=== PATIENT | female | born 1980 | race Caucasian/White ===

== ENCOUNTER 2017-05-14 08:10 | Inpatient (IN) | payer OTHER ==
[2017-05-14] MEDS ORDERED: ELECTROLYTE-148 SOLN 500 ML IV ONE (08:20)
[2017-05-14] MEDS ORDERED: CITRIC ACID/SODIUM CITRATE 30 ML UNIT-DOSE CUP PO ONE (08:59)
[2017-05-14] MEDS ORDERED: ELECTROLYTE-148 SOLN 1,000 ML IV SCH (09:00)
--- NOTE | 2017-05-14 09:13 | HP ---
Past Medical History - Primary Care Physician PCP:: Mario Gonzalez - Admission Chief Complaint: 39 weeks, ptrvious c/s, ama,transverse lie . for repeat c/s History of Present Illness: 36 yo f 39 weeks, with previous c/s and transverse lie, admitted for repeat c/s, rba discussed, cx clp, presenting part high, fhr cat1 History Source: Patient Limitations to Obtaining History: Language Barrier - Past Medical History ...: 3 ...Para: 1 ...Term: 1 ...Spon : 0 ...Induced : 1 ... Weeks Gestation by Dates: 39 ...EDC by Dates: 05/16/17 ...EDC by Sono: 05/16/17 Additional OB History: previous c/s - Past Surgical History Past Surgical History: Yes: Hx Myomectomy: No Hx Transabdominal Cerclage: No - Alcohol/Substance Use Hx Alcohol Use: No History of Substance Use: reports: None - Social History History of Recent Travel: No Home Medications - Allergies Allergies/Adverse Reactions: Allergies Allergy/AdvReac Type Severity Reaction Status Date / Time No Known Allergies Allergy Verified 05/14/17 08:37 - Home Medications Home Medications: Ambulatory Orders Ferrous Sulfate [Feosol] 325 mg PO DAILY 05/14/17 Vit No.129/Iron/FA [ One Daily Tablet] 1 each PO DAILY Review of Systems - Review of Systems Constitutional: reports: No Symptoms Eyes: reports: No Symptoms HENT: reports: No Symptoms Neck: reports: No Symptoms Cardiovascular: reports: No Symptoms Respiratory: reports: No Symptoms Gastrointestinal: reports: No Symptoms Genitourinary: reports: No Symptoms Breasts: reports: No Symptoms Reported Musculoskeletal: reports: No Symptoms Integumentary: reports: No Symptoms Endocrine: reports: No Symptoms Hematology/Lymphatic: reports: No Symptoms Psychiatric: reports: No Symptoms Physical Exam - Maternity Constitutional: Yes: Well Nourished, No Distress, Calm Eyes: Yes: WNL, Conjunctiva Clear, EOM Intact HENT: Yes: WNL, Atraumatic, Normocephalic Neck: Yes: WNL, Supple, Trachea Midline Cardiovascular: Yes: WNL, Regular Rate and Rhythm Breast(s): Yes: WNL - Abdominal Exam/OB Fundal Height: 40 Number of Fetuses: Single Presentation: Transverse Contractions: No Intensity: Unaware Monitor Mode: External Heart Rate Location: [facility] Category: I Accelerations: Uniform - Vaginal Exam/OB Vaginal Bleediing: No Speculum Exam: No Dilatation (cm): closed Effacement (%): 0 Amniotic Membrane Status: Intact Presentation: Transverse/Shoulder Station: -4 - Physical Exam Musculoskeletal: Yes: WNL, Muscle Weakness Edema: Yes Edema: LLE: Trace, RLE: Trace Deep Tendon Reflex Grade: Normal +2 Psychiatric: Yes: WNL Hemorrhage Risk Assessment - Risk Factors Risk Score: 1 Risk Level: Medium Risk Problem List - Problems (1) with 39 completed weeks gestation Code(s): Z3A.39 - 39 WEEKS GESTATION OF (2) Previous section complicating , antepartum condition or complication Code(s): O34.219 - MATERNAL CARE FOR UNSP TYPE SCAR FROM PREVIOUS DEL (3) Transverse lie, antepartum Code(s): O32.2XX0 - MATERNAL CARE FOR TRANSVERSE AND OBLIQUE LIE, UNSP Qualifiers: Fetus number: single or unspecified fetus Qualified Code(s): O32.2XX0 - Maternal care for transverse and oblique lie, not applicable or unspecified (4) Advanced maternal age (AMA) in Code(s): [id number] - Assessment/Plan admit for repeat c/s , rba explained
[2017-05-14 09:16] VITALS: BMI 31.4
[2017-05-14] MEDS ORDERED: PRENATAL VITAMINS W/ FOLIC ACID TABLET (FP) PO SCH (10:00)
[2017-05-14] MEDS ORDERED: FERROUS SO4 325 MG TABLET (FP) PO SCH (10:00)
[2017-05-14] MEDS ORDERED: BENZOCAINE 28 GM HEMORRHOIDAL OINTMENT PR PRN (11:36)
[2017-05-14] MEDS ORDERED: WITCH HAZEL 50% (TUCKS) 40 PAD/JAR PAD TP PRN (11:36)
[2017-05-14] MEDS ORDERED: METHYLERGONOVINE MALEATE 0.2 MG/1 ML AMP IM PRN (11:36)
[2017-05-14] MEDS ORDERED: IBUPROFEN 800 MG/8 ML IJ IVPB PRN (11:36)
[2017-05-14] MEDS ORDERED: oxyCODONE HCL 5 MG TABLET PO PRN ×2 (11:36)
[2017-05-14] MEDS ORDERED: diphenhydrAMINE HCL 25 MG CAPSULE (FP) PO PRN (11:36)
[2017-05-14] MEDS ORDERED: BENZOCAINE 20% 57 GM BOTTLE TP PRN (11:36)
[2017-05-14] MEDS ORDERED: DEXTROSE 5%-LACTATED RINGERS 1,000 ML IV SCH (11:45)
[2017-05-14] MEDS ORDERED: OXYTOCIN 20 UNITS in 0.9% NS 1,000 ML IV SCH (11:45)
[2017-05-14] MEDS ORDERED: morphine SULFATE/Preservative Free 0.5 MG/ML (1cc Syringe) SPIN ONE (12:50)
[2017-05-14] MEDS: CEFAZOLIN (PRE-DOCKED) 50 ML IVPB SCH (18:11)
[2017-05-15] MEDS: CEFAZOLIN (PRE-DOCKED) 50 ML IVPB SCH (02:02)
[2017-05-15] MEDS: SIMETHICONE 80 MG TAB.CHEW (FP) PO PRN ×3 (02:32→21:30)
[2017-05-15] MEDS: IBUPROFEN 600 MG TABLET (FP) PO PRN ×3 (02:34→21:31)
[2017-05-15] MEDS: ACETAMINOPHEN 325 MG TABLET (FP) PO PRN ×3 (02:34→21:31)
[2017-05-15 08:28] LABS: BASOPHIL 0.4 % (0-2.0); EOSINOPHIL 1.7 % (0-4.5); MCHC 33.9 g/dl (32.0-36.0); MEAN CELL VOLUME 91.6 fl (80-96); MEAN PLT VOLUME 8.8 fl (7.5-11.1); NEUTROPHILS 76.1 % (42.8-82.8); PLATELET COUNT 158 K/MM3 (134-434); WHITE BLOOD COUNT 9.3 K/mm3 (4.0-10.0)
[2017-05-15] MEDS: ENOXAPARIN NA (PORCINE) 40 MG/0.4 ML DISP.SYRIN SQ SCH (09:37)
[2017-05-15] MEDS: PRENATAL VITAMINS W/ FOLIC ACID TABLET (FP) PO SCH (09:37)
[2017-05-15] MEDS ORDERED: DIPHTH,PERTUSS(ACELL),TET 0.5 ML DISP.SYRIN IM ONE ×2 (10:00→12:00)
--- NOTE | 2017-05-15 10:22 | PN ---
Progress Note (short form) - Note Progress Note: ANESTHESIOLOGY POST-OP CHECK 36F s/p repeat under spinal anesthesia, POD #1. No acute complaints. Denies backache, headache, N/V, numbness weakness. Not yet OOB, solo out this AM. Tolerating PO. pain 4-5/10 and tolerable. Vital Signs Temperature 97.9 F 05/15/17 10:00 Pulse Rate 56 L 05/15/17 10:00 Respiratory Rate 18 05/15/17 10:00 Blood Pressure 93/55 05/15/17 10:00 O2 Sat by Pulse Oximetry (%) 98 05/14/17 13:50 Active Medications Acetaminophen (Tylenol -) 650 mg PO Q4H PRN PRN Reason: FEVER OR PAIN Last Admin: 05/15/17 02:34 Dose: 650 mg Benzocaine (Americaine Ointment -) 1 applic SD PRN PRN PRN Reason: PAIN Benzocaine (Americaine 20% [place] -) 1 spray TP PRN PRN PRN Reason: PAIN Bisacodyl (Dulcolax Suppository -) 10 mg RC PRN PRN PRN Reason: CONSTIPATION Diphenhydramine HCl (Benadryl -) 25 mg PO Q8H PRN PRN Reason: FOR ITCHING Last Admin: 05/15/17 03:56 Dose: 25 mg Diphenhydramine HCl (Benadryl Injection -) 25 mg IVPUSH Q4H PRN PRN Reason: Pruritis Enoxaparin Sodium (Lovenox -) 40 mg SQ DAILY [facility] Last Admin: 05/15/17 09:37 Dose: 40 mg Parenteral Electrolytes (Plasma-Lyte 148 -) 1,000 mls @ 125 mls/hr IV ASDIR [facility] Last Admin: 05/14/17 10:00 Dose: 125 mls/hr Dextrose/Lactated Ringer's (D5-Lr -) 1,000 mls @ 125 mls/hr IV ASDIR [facility] Last Admin: 05/15/17 02:02 Dose: 125 mls/hr Ibuprofen (Motrin -) 600 mg PO Q4H PRN PRN Reason: PAIN Last Admin: 05/15/17 02:34 Dose: 600 mg Methylergonovine Maleate (Methergine Injection -) 0.2 mg IM Q4H PRN PRN Reason: EXCESSIVE BLEEDING Oxycodone HCl (Roxicodone -) 5 mg PO Q4H PRN PRN Reason: PAIN LEVEL 1-5 Oxycodone HCl (Roxicodone -) 10 mg PO Q4H PRN PRN Reason: PAIN LEVEL 6-10 Multivit/Folic Acid/Iron ( Vitamins (Sjr) -) 1 tab PO DAILY [facility] Last Admin: 05/15/17 09:37 Dose: Not Given Senna/Docusate Sodium (Pericolace -) 2 tablet PO HS PRN PRN Reason: CONSTIPATION Simethicone (Mylicon -) 80 mg PO Q4H PRN PRN Reason: GAS Last Admin: 05/15/17 02:32 Dose: 80 mg Witch Jeannette/Glycerin (Tucks Pads -) 1 pad TP PRN PRN PRN Reason: PAIN Gen; Awake, alert Ext: No motor or sensory deficits of B/L lower extremities. No apparent anesthesia complications. Pain well controlled. Continue management as per primary team
--- NOTE | 2017-05-15 11:30 | PN ---
Post Progress Note - Subjective Subjective: no complains , voided after solo is taken out Post Day: 1 Type of Delivery: Repeat C/S Vital Signs: Vital Signs Temperature 97.9 F 05/15/17 10:00 Pulse Rate 56 L 05/15/17 10:00 Respiratory Rate 18 05/15/17 10:00 Blood Pressure 93/55 05/15/17 10:00 O2 Sat by Pulse Oximetry (%) 98 05/14/17 13:50 Breast Exam: Yes: Soft, Other (Bf ). No: Engorged Uterus: Yes: Fundus Firm, Fundus below umbilicus, Non-tender Incision: Yes: Dressing dry and intact. No: Oozing Abdomen/GI: Yes: Abdomen soft (BS active ), Tolerating PO (clear liquids ). No : Abdominal Distention, Tender, Passing flatus Lochia: Yes: Rubra Lochia, amount: Moderate Extremities: Yes: Calves non-tender Perineum: Yes: Intact Activity: Ambulating - Labs Labs: CBC WBC 9.3 K/mm3 (4.0-10.0) D 05/15/17 07:10 RBC 3.61 M/mm3 (3.60-5.2) 05/15/17 07:10 Hgb 11.2 GM/dL (10.7-15.3) 05/15/17 07:10 Hct 33.0 % (32.4-45.2) 05/15/17 07:10 MCV 91.6 fl (80-96) 05/15/17 07:10 MCHC 33.9 g/dl (32.0-36.0) 05/15/17 07:10 RDW 14.0 % (11.6-15.6) 05/15/17 07:10 Plt Count 158 K/MM3 (134-434) D 05/15/17 07:10 MPV 8.8 fl (7.5-11.1) 05/15/17 07:10 Neutrophils % 76.1 % (42.8-82.8) 05/15/17 07:10 Lymphocytes % 15.7 % (8-40) D 05/15/17 07:10 Monocytes % 6.1 % (3.8-10.2) 05/15/17 07:10 Eosinophils % 1.7 % (0-4.5) 05/15/17 07:10 Basophils % 0.4 % (0-2.0) 05/15/17 07:10 Assessment/Plan stable. plan ct po care
[2017-05-15] MEDS ORDERED: BISACODYL 10 MG SUPP.RECT RC PRN (11:36)
--- NOTE | 2017-05-15 11:48 | OP ---
DATE OF OPERATION: 05/14/2017 PREOPERATIVE DIAGNOSES: , 39 weeks; previous section; transverse lie; advanced maternal age; requests a repeat section. POSTOPERATIVE DIAGNOSES: , 39 weeks; previous section; transverse lie; advanced maternal age; requests a repeat section. PROCEDURE: Repeat low-segment transverse section. SURGEON: Mario Gonzalez MD MARKETING FORECASTER: ANESTHESIA: Spinal. ANESTHESIOLOGIST: Aimee Mcdonough MD ESTIMATED BLOOD LOSS: 500 mL DESCRIPTION OF OPERATION: Patient was taken to the operating room and had adequate spinal anesthesia. Abdomen and perineum were prepped and draped. Pfannenstiel abdominal skin incision was made. Abdominal wall was cut [id number] until the peritoneum was exposed and incised. Upon entering the abdominal cavity, lower uterine segment was identified, and uterovesical fold of peritoneum established. Bladder was pushed down. A low transverse uterine incision was made. Incision extended laterally with the bandage scissors. Amniotic sac was entered. Clear fluid. Baby was in the transverse position, head to the right of the mother. Then, it was delivered at the vertex without any difficulty. Placenta was delivered manually. Uterine cavity was cleaned of all remaining tissue. Uterine incision was closed in 2 layers, first layer with 0 Biosyn continuous suture, the second layer with 0 Biosyn, imbricating the first layer. Bladder flap was closed with 0 Biosyn continuous suture. Both tube and ovaries were checked, were normal. No active bleeding was seen. All the laparotomy, sponge, and instrument counts were correct. Then, peritoneum was closed with 0 Biosyn continuous suture. Muscles were brought together with interrupted suture of 0 Biosyn. Fascia was closed with 0 Biosyn continuous suture, subcutaneous fat with interrupted suture of 0 Biosyn, and the skin was closed with lu. Patient tolerated the procedure well, left the OR in good condition. Angela [id number]
[2017-05-16] MEDS: ACETAMINOPHEN 325 MG TABLET (FP) PO PRN ×3 (03:41→17:50)
[2017-05-16] MEDS: IBUPROFEN 600 MG TABLET (FP) PO PRN ×3 (03:41→17:49)
[2017-05-16] MEDS: SIMETHICONE 80 MG TAB.CHEW (FP) PO PRN (03:41)
[2017-05-16] MEDS: ENOXAPARIN NA (PORCINE) 40 MG/0.4 ML DISP.SYRIN SQ SCH (09:59)
[2017-05-16] MEDS: PRENATAL VITAMINS W/ FOLIC ACID TABLET (FP) PO SCH (10:01)
--- NOTE | 2017-05-16 15:08 | PN ---
Post Progress Note - Subjective Subjective: 36 yo status post repeat , seen and evaluated. Doing well. Post Day: 2 Type of Delivery: Repeat C/S Vital Signs: Vital Signs Temperature 97.7 F 05/16/17 10:00 Pulse Rate 70 05/16/17 10:00 Respiratory Rate 20 05/16/17 10:00 Blood Pressure 103/73 05/16/17 10:00 O2 Sat by Pulse Oximetry (%) 98 05/14/17 13:50 Uterus: Yes: Fundus Firm Incision: Yes: Dressing dry and intact Abdomen/GI: Yes: Abdomen soft, Tolerating PO Lochia: Yes: Rubra Lochia, amount: Small Extremities: Yes: Calves non-tender Perineum: Yes: Intact Activity: Ambulating - Labs Labs: CBC WBC 9.3 K/mm3 (4.0-10.0) D 05/15/17 07:10 RBC 3.61 M/mm3 (3.60-5.2) 05/15/17 07:10 Hgb 11.2 GM/dL (10.7-15.3) 05/15/17 07:10 Hct 33.0 % (32.4-45.2) 05/15/17 07:10 MCV 91.6 fl (80-96) 05/15/17 07:10 MCHC 33.9 g/dl (32.0-36.0) 05/15/17 07:10 RDW 14.0 % (11.6-15.6) 05/15/17 07:10 Plt Count 158 K/MM3 (134-434) D 05/15/17 07:10 MPV 8.8 fl (7.5-11.1) 05/15/17 07:10 Neutrophils % 76.1 % (42.8-82.8) 05/15/17 07:10 Lymphocytes % 15.7 % (8-40) D 05/15/17 07:10 Monocytes % 6.1 % (3.8-10.2) 05/15/17 07:10 Eosinophils % 1.7 % (0-4.5) 05/15/17 07:10 Basophils % 0.4 % (0-2.0) 05/15/17 07:10 Problem List - Problems (1) Status post repeat low transverse section Code(s): Z98.891 - HISTORY OF UTERINE SCAR FROM PREVIOUS SURGERY Assessment/Plan Status post repeat Stable Continue routine Post op care
[2017-05-16] MEDS ORDERED: SENNOSIDES/DOCUSATE COMBO (SENNA PLUS) TABLET (UD) PO PRN (22:00)
[2017-05-17] MEDS: SIMETHICONE 80 MG TAB.CHEW (FP) PO PRN (02:12)
[2017-05-17] MEDS: ACETAMINOPHEN 325 MG TABLET (FP) PO PRN ×3 (02:12→18:37)
[2017-05-17] MEDS: IBUPROFEN 600 MG TABLET (FP) PO PRN ×3 (02:13→18:36)
--- NOTE | 2017-05-17 05:10 | PN ---
Progress Note (short form) - Note Progress Note: pod 3 doing well, no c/o CBC, BMP 05/15/17 07:10 Last Vital Signs Temp Pulse Resp BP Pulse Ox 97.9 F 64 20 114/71 98 05/16/17 21:09 05/16/17 21:09 05/16/17 21:09 05/16/17 21:09 05/14/17 13:50 abdomen soft, no distension, no cva incision dry, clean no calf tenderness plan ambulate . cbc Problem List - Problems (1) with 39 completed weeks gestation Code(s): Z3A.39 - 39 WEEKS GESTATION OF (2) Previous section complicating , antepartum condition or complication Code(s): O34.219 - MATERNAL CARE FOR UNSP TYPE SCAR FROM PREVIOUS DEL (3) Transverse lie, antepartum Code(s): O32.2XX0 - MATERNAL CARE FOR TRANSVERSE AND OBLIQUE LIE, UNSP Qualifiers: Fetus number: single or unspecified fetus Qualified Code(s): O32.2XX0 - Maternal care for transverse and oblique lie, not applicable or unspecified (4) Advanced maternal age (AMA) in Code(s): [id number] -
[2017-05-17 07:00] LABS: BASOPHIL 0.7 % (0-2.0); EOSINOPHIL 3.2 % (0-4.5); MCH 30.7 pg (25.7-33.7); MCHC 33.6 g/dl (32.0-36.0); MEAN CELL VOLUME 91.5 fl (80-96); MEAN PLT VOLUME 8.6 fl (7.5-11.1); NEUTROPHILS 69.8 % (42.8-82.8); PLATELET COUNT 186 K/MM3 (134-434); WHITE BLOOD COUNT 7.7 K/mm3 (4.0-10.0)
[2017-05-17] MEDS: PRENATAL VITAMINS W/ FOLIC ACID TABLET (FP) PO SCH (10:27)
[2017-05-17] MEDS: ENOXAPARIN NA (PORCINE) 40 MG/0.4 ML DISP.SYRIN SQ SCH (12:12)
--- NOTE | 2017-05-17 15:36 | PATH ---
Surgical Pathology Report Patient Name: MALLORY FIGUEREDO [facility]. Rec. #: [id number] /Age/Gender: 1980 (Age: 36) / F Account: [id number] Location: [facility] OBS/FORGING PRESS OPERATOR Taken: 05/14/2017 Received: 05/15/2017 Reported: 05/17/2017 Physicians: Mario Gonzalez M.D. Specimen(s) Received PLACENTA Clinical History , TOPx1 term Repeat c/section Final Diagnosis PLACENTA, DELIVERY: FOCALLY DISRUPTED THIRD TRIMESTER PLACENTA WITH MODERATE PREVILLOUS, PERIVILLOUS, AND PRECHORIONIC FIBRIN DEPOSITION, THREE VESSEL UMBILICAL CORD, AND UNREMARKABLE PLACENTAL MEMBRANES. Electronically Signed William Soto M.D. Gross Description The specimen is received fresh, labeled "placenta" and is a 404 gram, 16.0 x 15.0 x 2.3 cm placenta with attached membranes and umbilical cord. The attached membranes are ross, translucent with focal opacities and insert marginally. The umbilical cord measures 34 cm in length and averages 1.3 cm in diameter. The cord inserts eccentrically, 2.5 cm to the nearest margin. No true knots or strictures are identified. Cut surface of the umbilical cord reveals 3 vessels. The surface is darden-blue with fibrin deposition and appropriate caliber vessels. The maternal surface is red-brown with focal defects. Sectioning reveals red-brown, spongy parenchyma. No focal lesions are identified. Buyer Renter sections are submitted in three cassettes as follows: 1- membrane rolls and umbilical cord; 2-3- full thickness sections of placenta. 05/16/2017 [facility]05/16/2017
--- NOTE | 2017-05-18 07:15 | DS ---
Physical Exam-ACCESSIONER Vital Signs: Vital Signs Temperature 98.0 F 05/17/17 22:00 Pulse Rate 64 05/17/17 22:00 Respiratory Rate 20 05/17/17 22:00 Blood Pressure 99/57 05/17/17 22:00 O2 Sat by Pulse Oximetry (%) 98 05/14/17 13:50 Constitutional: Yes: Well Nourished Eyes: Yes: Conjunctiva Clear HENT: Yes: Atraumatic Neck: Yes: Supple, Trachea Midline Cardiovascular: Yes: Regular Rate and Rhythm Respiratory: Yes: Regular, CTA Bilaterally Gastrointestinal: Yes: Normal Bowel Sounds Uterus: Yes: Normal Wound/Incision: Yes: Well Approximated, [place] Intact Neurological: Yes: Alert, Oriented ...Motor Strength: WNL Psychiatric: Yes: Alert, Oriented Labs: CBC, BMP 05/17/17 06:20 Delivery - Delivery Section: Repeat Type of Anesthesia: Spinal Episiotomy/Laceration: None EBL (cc): 500 Delivery, Single - Stages of Labor Date of Delivery: 05/14/17 Time of Delivery: 11:07 Time Placenta Delivered: 11:08 - Condition of Marine Firer/Buckle Assembler Present: Yes Name: Niels Brooks Gender: Female Weight: 7 lb 1 oz Total Hours ROM (Hrs/Mins): 0/2 - 1 Minute Total Score: 9 5 Minutes Total Score: 9 - Feeding Plan Initial Plan: Exclusive throughout hospitalization Discharge Summary Reason For Visit: C/SECTION Current Active Problems Advanced maternal age (AMA) in (Acute) with 39 completed weeks gestation (Acute) Previous section complicating , antepartum condition or complication (Acute) Status post repeat low transverse section (Acute) Transverse lie, antepartum (Acute) Procedures: Principal: Repeat Low Transverse Hospital Course: Routine Post op care Condition: Good - Instructions Diet, Activity, Other Instructions: regular diet, follow up office 1 week Referrals: Mario Gonzalez MD [Staff Physician] - Disposition: HOME - Home Medications Comprehensive Discharge Medication List: Ambulatory Orders Ferrous Sulfate [Feosol] 325 mg PO DAILY 05/14/17 Vit No.129/Iron/FA [ One Daily Tablet] 1 each PO DAILY Ibuprofen [Motrin -] 600 mg PO QID #28 tablet 05/16/17
[2017-05-18] MEDS: IBUPROFEN 600 MG TABLET (FP) PO PRN ×2 (09:47→14:20)
[2017-05-18] MEDS: ACETAMINOPHEN 325 MG TABLET (FP) PO PRN ×2 (09:48→14:20)
[2017-05-18] MEDS: ENOXAPARIN NA (PORCINE) 40 MG/0.4 ML DISP.SYRIN SQ SCH (09:49)
[2017-05-18] MEDS: PRENATAL VITAMINS W/ FOLIC ACID TABLET (FP) PO SCH (09:49)
[2017-05-18 12:08] VITALS: BP 104/59; PULSE 52; TEMP 98.1
== END 2017-05-18 17:24 | disposition home or self-care (01) | DRG 540 ==
LOC: JLDR 08:10 → J3W 16:58
PROVIDERS: ADMIT Obstetrics & Gynecology; ATTEND Obstetrics & Gynecology
PROC: 10D00Z1 Extraction of Products of Conception, Low, Open Approach (ICD-10-PCS; principal; 2017-05-14)
DX: O34.211 Maternal care for low transverse scar from previous cesarean delivery (principal); O32.2XX0 Maternal care for transverse and oblique lie, not applicable or unspecified; Z3A.39 39 weeks gestation of pregnancy; Z37.0 Single live birth
CPT/HCPCS: 36415; 85025; 88307-TC; 90715

== ENCOUNTER 2017-07-13 22:29 | Emergency (ER) | payer OTHER ==
[2017-07-13 22:43] VITALS: BP 106/67; PULSE 70; TEMP 97.7; BMI 26.1
[2017-07-13] MEDS ORDERED: LIDOCAINE HCL/PF 1% SDV 5ML VIAL ONE (23:04)
[2017-07-13] MEDS ORDERED: SULFAMETHOXAZOLE/TRIMETHOPRIM 800MG/160MG D.S. TABLET PO ONE (23:28)
[2017-07-13] MEDS ORDERED: CEPHALEXIN MONOHYDRATE 500 MG CAPSULE (UD) PO ONE (23:28)
--- NOTE | 2017-07-13 23:32 | PDOC ---
History of Present Illness - General History Source: Patient Exam Limitations: No Limitations - History of Present Illness Initial Comments: 07/13/17 23:58 The patient is a 36 year old female, with no significant past medical history, who presents today complaining of right first finger swelling x3 days with white /brown pus. She states that the finger has become progressively more painful and tender and she noticed the pus twice over the last 3 days. There is no red streaking up the arm, but she notes some pain in the right forearm. Denies fever, chills, nausea, vomiting. Allergies: none reported <Nicole Harrison - Last Filed: 07/13/17 23:58> <Ambar Ontiveros - Last Filed: 07/15/17 00:39> - General Chief Complaint: Pain Stated Complaint: FINGER INJURY Time Seen by Provider: 07/13/17 22:57 Past History <Nicole Harrison - Last Filed: 07/13/17 23:58> - Past Medical History Asthma: No Cancer: No Cardiac Disorders: No Diabetes: No HTN: No Seizures: No Thyroid Disease: No Other medical history: Pt denies - Psycho/Social/Smoking Cessation Hx Suicidal Ideation: No Smoking History: Never smoked Information on smoking cessation initiated: No Hx Alcohol Use: No Drug/Substance Use Hx: No Substance Use Type: None Hx Substance Use Treatment: No <Ambar Ontiveros - Last Filed: 07/15/17 00:39> - Past Medical History Allergies/Adverse Reactions: Allergies Allergy/AdvReac Type Severity Reaction Status Date / Time No Known Allergies Allergy Verified 07/13/17 22:40 Home Medications: Ambulatory Orders Ferrous Sulfate [Feosol] 325 mg PO DAILY 05/14/17 Vit No.129/Iron/FA [ One Daily Tablet] 1 each PO DAILY Ibuprofen [Motrin -] 600 mg PO QID #28 tablet 05/16/17 Cephalexin [Keflex] 500 mg PO Q6H #28 capsule 07/13/17 Sulfamethoxazole/Trimethoprim [Bactrim Ds -] 1 tab PO BID #14 tablet 07/13/17 Review of Systems - Review of Systems Able to Perform ROS?: Yes Comments:: 07/13/17 23:59 GENERAL/CONSTITUTIONAL: No fever or chills. No weakness. HEAD, EYES, EARS, NOSE AND THROAT: No change in vision. No ear pain or discharge. No sore throat. CARDIOVASCULAR: No chest pain or shortness of breath. SKIN: +tenderness and swelling to the right first finger. NEUROLOGIC: No headache, vertigo, loss of consciousness, or change in strength/ sensation. <Nicole Harrison - Last Filed: 07/13/17 23:58> *Physical Exam - Vital Signs Last Vital Signs Temp Pulse Resp BP Pulse Ox 97.7 F 70 20 106/67 98 07/13/17 22:40 07/13/17 22:40 07/13/17 22:40 07/13/17 22:40 07/13/17 22:40 <ChristyNicole - Last Filed: 07/13/17 23:58> - Vital Signs Last Vital Signs Temp Pulse Resp BP Pulse Ox 97.7 F 70 20 106/67 98 07/13/17 22:40 07/13/17 22:40 07/13/17 22:40 07/13/17 22:40 07/13/17 22:40 - Physical Exam Comments: GENERAL: Awake, alert, and fully oriented, in no acute distress EXTREMITIES: Normal range of motion, no edema. No clubbing or cyanosis. No cords, erythema, or tenderness NEUROLOGICAL: Cranial nerves II through XII grossly intact. Normal speech, normal gait SKIN: Warm, Dry, normal turgor, no rashes. +Tenderness, redness to R thumb to the lateral part of the nail. <Ambar Ontiveros - Last Filed: 07/15/17 00:39> Procedures - Incision and Drainage I&D Site: Right: Other (thumb) Anesthesia: 1% Lidocaine Volume(ml): 2 Blade Size: 11 Attempts: 2 Plain Packing: No Complications: none Dressing: Yes <Ambar Ontiveros - Last Filed: 07/15/17 00:39> ED Treatment Course - Medications Given in the ED: ED Medications Discontinued Medications Generic Name Dose Route Start Last Admin Trade Name Freq PRN Reason Stop Dose Admin Cephalexin HCl 500 mg 07/13/17 23:28 07/13/17 23:45 Keflex - PO 07/13/17 23:29 500 mg ONCE ONE Administration Trimethoprim/Sulfamethoxazole 1 each 07/13/17 23:28 07/13/17 23:44 Bactrim Ds - PO 07/13/17 23:29 1 each ONCE ONE Administration <Nicole Harrison - Last Filed: 07/13/17 23:58> Medical Decision Making - Medical Decision Making Attempted to I&D, however, no passage of any purulent material (there was small scab there, and patient had apparently expressed some material earlier). Recommended salt water soaks twice a day and abx for cellulitis. Stable for DC home. <Ambar Ontiveros - Last Filed: 07/15/17 00:39> *DC/Admit/Observation/Transfer <Nicole Harrison - Last Filed: 07/13/17 23:58> - Discharge Dispostion Admit: No <Ambar Ontiveros - Last Filed: 07/15/17 00:39> Diagnosis at time of Disposition: Paronychia of finger Qualifiers: Laterality: right Qualified Code(s): L03.011 - Cellulitis of right finger - Discharge Dispostion Disposition: HOME Condition at time of disposition: Stable - Prescriptions Prescriptions: Sulfamethoxazole/Trimethoprim [Bactrim Ds -] 1 tab PO BID #14 tablet Cephalexin [Keflex] 500 mg PO Q6H #28 capsule - Patient Instructions Printed Discharge Instructions: DI for Paronychia
[2017-07-13] MEDS ORDERED: SULFAMETHOXAZOLE/TRIMETHOPRIM 800MG/160MG D.S. TABLET ONE (23:42)
[2017-07-13] MEDS ORDERED: CEPHALEXIN MONOHYDRATE 250 MG CAPSULE (FP) ONE (23:43)
== END 2017-07-13 23:47 | disposition home or self-care (01) ==
LOC: JER 22:29
PROC: 0H9FXZZ Drainage of Right Hand Skin, External Approach (ICD-10-PCS; principal; 2017-07-13)
DX: L03.011 Cellulitis of right finger (principal)
CPT/HCPCS: 10140; 99281-25

== ENCOUNTER 2019-01-23 09:32 | Emergency (ER) | payer OTHER ==
[2019-01-23 10:23] VITALS: BMI 31.3
--- NOTE | 2019-01-23 11:07 | PDOC ---
History of Present Illness - General Chief Complaint: Vaginal Bleeding Stated Complaint: VAGINAL BLEEDING Time Seen by Provider: 01/23/19 10:48 - History of Present Illness Initial Comments: 01/23/19 11:05 38yo F currently 6 weeks by dates presents to the ED with vaginal bleeding since 5pm yesterday. Initially spotting, this morning suprapubic cramping and passing clots. Has not soaked through multiple pads, has only used 1 pad. Saw OB last week, had blood work done, was found to be positive for chlamydia and treated. No US at that time. Pt was also diagnosed with another infection for which she was prescribed clinda gel but she has not picked up yet. No recent vaginal discharge. No other sxs. No previous spontaneous abortions or complications with her pregnancies. Pt denies dizziness, cp, sob, caputo, fevers, chills, n/v/d, urinary sxs, rashes, weakness or numbness. Past History - Past Medical History Allergies/Adverse Reactions: Allergies Allergy/AdvReac Type Severity Reaction Status Date / Time No Known Allergies Allergy Verified 01/23/19 10:22 Home Medications: Ambulatory Orders Ferrous Sulfate [Feosol] 325 mg PO DAILY 05/14/17 Vit No.129/Iron/Folic [ One Daily Tablet] 1 each PO DAILY 05/14 Asthma: No Cancer: No Cardiac Disorders: No COPD: No Diabetes: No HTN: No Seizures: No Thyroid Disease: No - Reproductive History Is Patient Now?: Yes (6WKS) (#): 3 Para: 2 Therapeutic (s) & number: No Spontaneous : 0 - Suicide/Smoking/Psychosocial Hx Smoking History: Never smoked Have you smoked in the past 12 months: No Information on smoking cessation initiated: No Hx Alcohol Use: No Drug/Substance Use Hx: No Substance Use Type: None Hx Substance Use Treatment: No Review of Systems - Review of Systems Comments:: 01/23/19 12:32 GENERAL/CONSTITUTIONAL: No fever or chills. No weakness. HEAD, EYES, EARS, NOSE AND THROAT: No change in vision. No ear pain or discharge. No sore throat. GASTROINTESTINAL: No nausea, vomiting, diarrhea or constipation. GENITOURINARY: +vaginal bleeding and suprapubic cramping. No dysuria, frequency , or change in urination. CARDIOVASCULAR: No chest pain or shortness of breath. RESPIRATORY: No cough, wheezing, or hemoptysis. MUSCULOSKELETAL: No joint or muscle swelling or pain. No neck or back pain. SKIN: No rash NEUROLOGIC: No headache, vertigo, loss of consciousness, or change in strength/ sensation. ENDOCRINE: No increased thirst. No abnormal weight change. HEMATOLOGIC/LYMPHATIC: No anemia, easy bleeding, or history of blood clots. ALLERGIC/IMMUNOLOGIC: No hives or skin allergy. *Physical Exam - Vital Signs Last Vital Signs Temp Pulse Resp BP Pulse Ox 97.7 F 69 16 112/53 L 100 01/23/19 09:45 01/23/19 09:45 01/23/19 09:45 01/23/19 09:45 01/23/19 09:45 - Physical Exam Comments: 01/23/19 12:34 GENERAL: Awake, alert, and fully oriented, in no acute distress EYES: PERRLA, EOMI, sclera anicteric, conjunctiva clear ENT: Oropharynx clear without exudates. Moist mucosa NECK: Normal ROM, supple, no lymphadenopathy, JVD, or masses LUNGS: Breath sounds equal, clear to auscultation bilaterally. No wheezes, and no crackles HEART: Regular rate and rhythm, normal S1 and S2, no murmurs, rubs or gallops ABDOMEN: Soft, nontender, normoactive bowel sounds. No guarding, no rebound. No masses : +blood in vault with clots, +pooling bright blood with speculum, os is closed, no ttp in midline or adnexa b/l. No CMT EXTREMITIES: Normal range of motion, no edema. No cords, erythema, or tenderness NEUROLOGICAL: Normal speech, cranial nerves intact, equal strength and sensation b/l SKIN: Warm, Dry, normal turgor, no rashes or lesions noted. Moderate Sedation - Procedure Monitoring Vital Signs: Procedure Monitoring Vital Signs Temperature 97.7 F 01/23/19 09:45 Pulse Rate 69 01/23/19 09:45 Respiratory Rate 16 01/23/19 09:45 Blood Pressure 112/53 L 01/23/19 09:45 O2 Sat by Pulse Oximetry (%) 100 01/23/19 09:45 ED Treatment Course - LABORATORY CBC & Chemistry Diagram: 01/23/19 11:00 01/23/19 11:00 Medical Decision Making - Medical Decision Making 01/23/19 12:35 38yo F 6 weeks presents to the ED with vaginal bleeding. Vitals wnl. Exam with pooling and clots in vault. Likely threatened vs incomplete vs 1st trimester bleeding. Plan -labs -UA -TVUS -reassess 01/23/19 15:06 RH+ UA neg for infection, +for blood 2/2 vaginal bleeding TVUS with missed Ab vs early IUP Bleeding has slowed down to spotting in the ED No longer cramping Repeat vitals wnl All results relayed to pt who will f/u with Dr. Agarwal for rpt B HCG Return precautions given. I discussed the physical exam findings, ancillary test results and final diagnoses with the patient. I answered all of the patient's questions. The patient was satisfied with the care received and felt comfortable with the discharge plan and treatment plan. The patient will call their primary care physician within 24 hours to arrange follow-up and will return to the Emergency Department with any new, persistent or worsening symptoms. *DC/Admit/Observation/Transfer Diagnosis at time of Disposition: Vaginal bleeding, Threatened , Abdominal cramping affecting - Discharge Dispostion Disposition: HOME Condition at time of disposition: Stable Decision to Admit order: No - Referrals Referrals: Luzi Agarwal MD [Staff Physician] - - Patient Instructions Printed Discharge Instructions: DI for Threatened Additional Instructions: Follow up with Dr. Agarwal in 2-3 days. Return to the emergency department if you have any new, worsening, or concerning symptoms such as uncontrolled pain or heavy bleeding. Heavy bleeding would be soaking through 2 pads an hour for 2 or more hours. - Post Discharge Activity - Attestations Physician Attestion: 01/23/19 15:10 I, Dr. Nkechi Odell MD, attest that this document has been prepared under my direction and personally reviewed by me in its entirety. I further attest, that it accurately reflects all work, treatment, procedures and medical decision -making performed by me.
[2019-01-23 11:31] LABS: BASO % 0.7 % (0-2.0); EOS % 0.9 % (0-4.5); HEMATOCRIT 37.2 % (32.4-45.2); LYMPH % 21.1 % (8-40); MEAN CELL VOLUME 88.6 fl (80-96); MEAN PLT VOLUME 7.9 fl (7.5-11.1); MONO % 6.2 % (3.8-10.2); NEUT % 71.1 % (42.8-82.8); PLATELET COUNT 274 K/MM3 (134-434); RDW 13.6 % (11.6-15.6); WHITE BLOOD COUNT 7.4 K/mm3 (4.0-10.0)
[2019-01-23 11:41] LABS: URINE APPEARANCE SLCLOUDY; URINE BILIRUBIN NEGATIVE (<2.0 mg/dL); URINE COLOR LTYELLOW; URINE GLUCOSE (UA) NEGATIVE (NEGATIVE); URINE KETONE NEGATIVE (NEGATIVE); URINE LEUK ESTERASE NEGATIVE (NEGATIVE); URINE NITRITE NEGATIVE (NEGATIVE); URINE PROTEIN NEGATIVE (NEGATIVE); URINE UROBILINOGEN NEGATIVE mg/dL (0.2-1.0)
[2019-01-23 12:14] LABS: EPI CELLS RARE /HPF (FEW); URINE BACTERIA RARE /hpf (NONE SEEN)
[2019-01-23 12:24] LABS: ALBUMIN 3.8 g/dl (3.4-5.0); ALK PHOS 82 U/L (45-117); ANION GAP 5 MMOL/L (8-16); BILIRUBIN,TOTAL 0.3 mg/dL (0.2-1); BLOOD UREA NITROGEN 10 mg/dL (7-18); CALCIUM 8.6 mg/dL (8.5-10.1); CHLORIDE 106 mmol/L (98-107); CO2 26 mmol/L (21-32); CREATININE 0.5 mg/dL (0.55-1.3); GLUCOSE,RANDOM 94 mg/dL (74-106); POTASSIUM 3.9 mmol/L (3.5-5.1); SGOT/AST 14 U/L (15-37); SGPT/ALT 23 U/L (13-61); SODIUM 137 mmol/L (136-145); TOT PROT 7.4 g/dl (6.4-8.2)
[2019-01-23 15:45] VITALS: BP 105/65; TEMP 99
[2019-01-23 15:46] VITALS: PULSE 90
== END 2019-01-23 15:40 | disposition home or self-care (01) ==
LOC: JER 09:32
DX: O26.891 Other specified pregnancy related conditions, first trimester (principal); O20.0 Threatened abortion; Z3A.01 Less than 8 weeks gestation of pregnancy
CPT/HCPCS: 36415; 76817-TC; 80053; 81003; 81015; 84702; 85025; 86850; 86900; 86901; 87086; 87186; 99282-25

== ENCOUNTER 2019-12-19 00:36 | Emergency (ER) | payer OTHER ==
[2019-12-19 01:42] VITALS: BP 112/63; PULSE 70; TEMP 97.7; BMI 28.3
--- NOTE | 2019-12-19 01:57 | PDOC ---
Attending Attestation - Resident Resident Name: Anup Alvarado - ED Attending Attestation I have performed the following: I have examined & evaluated the patient, The case was reviewed & discussed with the resident, I agree w/resident's findings & plan - HPI HPI: 12/19/19 02:56 Pt has left 1st toe pain. She cut an ingrown nail a couple days back and she has infected toe at this time. - Physicial Exam PE: 12/19/19 03:32 Pt has swelling of the left 1st toe. She has abraded skin all around the toe nail. Pt has been cutting her nails and removed ingrown toenail and she develiped a cellulitis. Now with pain. Pt has no fever and she has FROM of the toe. She is able to ambulate with pain. She has no pus at the area; nothing to culture the wound and nothing to drain/ 12/19/19 03:37 Heart and lungs normal Abd soft NT ND +BS no flank pain Pt appears well - Medical Decision Making 12/19/19 03:38 Home with clinda and betadine ointment First dose given here. Pt's toe was washed here with betadine
[2019-12-19] MEDS ORDERED: CLINDAMYCIN HCL 150 MG CAPSULE (FP) PO ONE (02:40)
--- NOTE | 2019-12-19 02:40 | PDOC ---
History of Present Illness - General Chief Complaint: Pain Stated Complaint: LEFT GREAT TOE INFECTION Time Seen by Provider: 12/19/19 01:47 - History of Present Illness Initial Comments: 12/19/19 02:40 HPI: 39 y/o F with no pmh presenting with left great toe pain x3 days. She trimmed an ingrown nail and started having increased swelling, redness, and pain. Yesterday she noted purulent drainage and blood. She denied decreased ROM, fever , chills, n/v, abd pain, cp, SOB, LH, [place]. She applied bacitracin and took tylenol and has no improvement in pain. PMHx: as noted above ROS: as noted SHx: Denies tobacco use; no alcohol use; no rec drugs Allergies: NKDA ROS: GENERAL/CONSTITUTIONAL: No fever or chills. No weakness. HEAD, EYES, EARS, NOSE AND THROAT: No change in vision. No ear pain or discharge. No sore throat. CARDIOVASCULAR: No chest pain or shortness of breath RESPIRATORY: No cough, wheezing, or hemoptysis. GASTROINTESTINAL: No nausea, vomiting, diarrhea or constipation. GENITOURINARY: No dysuria, frequency, or change in urination. MUSCULOSKELETAL: +toe pain SKIN: No rash NEUROLOGIC: No headache, vertigo, loss of consciousness, or change in strength/ sensation. ENDOCRINE: No increased thirst. No abnormal weight change HEMATOLOGIC/LYMPHATIC: No anemia, easy bleeding, or history of blood clots. ALLERGIC/IMMUNOLOGIC: No hives or skin allergy. PE: GENERAL: Awake, alert, and fully oriented, no acute distress HEAD: No signs of trauma, normocephalic, atraumatic EYES: EOMI, sclera anicteric, conjunctiva clear ENT: Auricles normal inspection, hearing grossly normal, nares patent, oropharynx clear without exudates. Moist mucosa NECK: Normal ROM, no lymphadenopathy LUNGS: No increased work of breathing, symmetrical chest rise, clear to auscultation bilaterally, no wheezes, crackles or rhonchi HEART: Regular rate, regular rhythm, normal S1 and S2, no murmur, peripheral pulses 2+ and equal bilaterally. ABDOMEN: Soft, nondistended, nontender, normoactive bowel sounds. No guarding, no rebound. No masses. No CVAT MUSCULOSKELETAL: Normal inspection, FROM NEUROLOGICAL: Cranial nerves II through XII grossly intact. Normal speech, normal gait, no focal sensorimotor deficits SKIN: left great toe with medial aspect with lesion and surrounding erythema, ttp; sensation intact, pulses 2+, FROM, 5/5 str Past History - Past Medical History Allergies/Adverse Reactions: Allergies Allergy/AdvReac Type Severity Reaction Status Date / Time No Known Allergies Allergy Verified 01/23/19 10:22 Home Medications: Ambulatory Orders Ferrous Sulfate [Feosol] 325 mg PO DAILY 05/14/17 Vit No.129/Iron/Folic [ One Daily Tablet] 1 each PO DAILY 05/14 Amoxicillin - [Amoxicillin 500mg Capsule -] 500 mg PO BID #14 capsule 01/27/19 Clindamycin [Cleocin -] 300 mg PO QID 7 Days #28 capsule 12/19/19 Asthma: No Cancer: No Cardiac Disorders: No COPD: No Diabetes: No HTN: No Seizures: No Thyroid Disease: No - Reproductive History (#): 3 Para: 2 Therapeutic (s) & number: No Spontaneous : 0 - Psycho Social/Smoking Cessation Hx Smoking History: Never smoked Have you smoked in the past 12 months: No Information on smoking cessation initiated: No Hx Alcohol Use: No Drug/Substance Use Hx: No Substance Use Type: None Hx Substance Use Treatment: No *Physical Exam - Vital Signs Last Vital Signs Temp Pulse Resp BP Pulse Ox 97.7 F 70 17 112/63 100 12/19/19 01:35 12/19/19 01:35 12/19/19 01:35 12/19/19 01:35 12/19/19 01:35 Medical Decision Making - Medical Decision Making 12/19/19 02:57 39 y/o F with no pmh presenting with left great toe pain x3 days associated with edema, erythema, purulent drainage. VSS, AF. PE with left great toe medial aspect lesion with erythema and ttp, no active purulence. -clinda, toradol, boostrix -script to pharmacy; recommending 7 days of clinda 300mg qid and pcp followup -patient understands plan and has no other questions Discharge - Discharge Information Problems reviewed: Yes Clinical Impression/Diagnosis: Pain of left great toe Cellulitis Qualifiers: Site of cellulitis: extremity Site of cellulitis of extremity: toe Laterality: left Qualified Code(s): L03.032 - Cellulitis of left toe Condition: Stable Disposition: HOME - Additional Discharge Information Prescriptions: Clindamycin [Cleocin -] 300 mg PO QID 7 Days #28 capsule - Follow up/Referral - Patient Discharge Instructions Patient Printed Discharge Instructions: DI for Infected Ingrown Toenail Additional Instructions: Additional Instructions: Please return to the emergency department with any new or worsening symptoms or concerns including worsening redness, fever, worsening pain, worsening pus drainage. Please follow up with your primary care physician within 72 hours. Please take the antibiotic clindamycin 300mg every 6hours for 7 days. You may take ibuprofen 600mg every 6-8 hours for pain control. You may apply ice for pain control as well. - Post Discharge Activity
[2019-12-19] MEDS ORDERED: KETOROLAC TROMETHAMINE 60 MG/2 ML VIAL IM ONE (02:44)
[2019-12-19] MEDS ORDERED: DIPHTH,PERTUSS(ACELL),TET 0.5 ML DISP.SYRIN IM ONE ×2 (02:56→03:51)
[2019-12-19] MEDS ORDERED: KETOROLAC TROMETHAMINE 60 MG/2 ML VIAL ONE (03:50)
[2019-12-19] MEDS ORDERED: CLINDAMYCIN HCL 150 MG CAPSULE (FP) ONE (03:50)
== END 2019-12-19 04:19 | disposition home or self-care (01) ==
LOC: JER 00:36
PROC: 3E0233Z Introduction of Anti-inflammatory into Muscle, Percutaneous Approach (ICD-10-PCS; principal; 2019-12-19)
PROC: 3E0234Z Introduction of Serum, Toxoid and Vaccine into Muscle, Percutaneous Approach (ICD-10-PCS; 2019-12-19)
DX: L03.032 Cellulitis of left toe (principal)
CPT/HCPCS: 90715; 99281-25

== ENCOUNTER 2024-05-01 18:59 | Emergency (ER) | payer OTHER ==
[2024-05-01 19:03] VITALS: BP 112/73; PULSE 87; RESP 18; TEMP 97; BMI 28.8
[2024-05-01] MEDS ORDERED: predniSONE 20 MG TABLET (UD) ONE (19:50)
[2024-05-01] MEDS: predniSONE 20 MG TABLET (UD) PO ONE (19:56)
[2024-05-01] MEDS ORDERED: valACYclovir HCL 500 MG TABLET (FP) ONE (19:57)
[2024-05-01] MEDS: valACYclovir HCL 500 MG TABLET (FP) PO ONE (20:01)
== END 2024-05-01 20:36 | disposition home or self-care (01) ==
LOC: JER 18:59
DX: O09.521 Supervision of elderly multigravida, first trimester (principal); O99.351 Diseases of the nervous system complicating pregnancy, first trimester; G51.0 Bell's palsy; Z3A.00 Weeks of gestation of pregnancy not specified
CPT/HCPCS: 84703; 87086; 99283-25

== ENCOUNTER 2024-09-23 18:29 | Observation (INO) | payer OTHER ==
[2024-09-23 18:37] VITALS: RESP 18; BMI 29.2
[2024-09-23] MEDS: LACTATED RINGERS SOLUTION 500 ML IV ONE (19:45)
[2024-09-23 19:54] LABS: BASO % 0.5 % (0-2.0); EOS % 1.2 % (0-4.5); HEMOGLOBIN 11.5 GM/dL (10.7-15.3); LYMPH % 21.1 % (8-40); MCH 29.5 pg (25.7-33.7); MCHC 33.8 g/dl (32.0-36.0); MEAN CELL VOLUME 87.3 fl (80-96); MEAN PLT VOLUME 8.4 fl (7.5-11.1); MONO % 6.2 % (3.8-10.2); PLATELET COUNT 226 10^3/uL (134-434); RBC 3.89 M/mm3 (3.60-5.2); RDW 14.5 % (11.6-15.6); WHITE BLOOD COUNT 7.2 K/mm3 (4.0-10.0)
[2024-09-23 20:12] LABS: INR 0.96 (0.83-1.09)
[2024-09-23 20:15] LABS: ACTIVATED PTT 29.4 SECONDS (25.2-36.5)
[2024-09-23] MEDS ORDERED: LACTATED RINGERS SOLUTION 500 ML IV SCH ×2 (20:45→23:00)
[2024-09-23] MEDS: LACTATED RINGERS SOLUTION 1,000 ML IV SCH (23:00)
[2024-09-23] MEDS ORDERED: BETAMET ACET/BETAMET NA PH 30 MG/5 ML VIAL ONE (23:46)
[2024-09-23] MEDS: BETAMET ACET/BETAMET NA PH 30 MG/5 ML VIAL IM ONE (23:50)
[2024-09-24 06:13] VITALS: BP 94/54; PULSE 51; TEMP 97.8
[2024-09-24 07:23] LABS: HEMATOCRIT 33.2 % (32.4-45.2); HEMOGLOBIN 11.4 GM/dL (10.7-15.3); MCH 30.1 pg (25.7-33.7); MCHC 34.4 g/dl (32.0-36.0); MEAN CELL VOLUME 87.6 fl (80-96); MEAN PLT VOLUME 8.6 fl (7.5-11.1); PLATELET COUNT 195 10^3/uL (134-434); RBC 3.79 M/mm3 (3.60-5.2); RDW 14.6 % (11.6-15.6); WHITE BLOOD COUNT 6.5 K/mm3 (4.0-10.0)
[2024-09-24 07:33] LABS: INR 0.96 (0.83-1.09); PROTHROMBIN TIME (PATIENT) 11.1 SEC (9.7-13.0)
[2024-09-24 07:36] LABS: ACTIVATED PTT 30.6 SECONDS (25.2-36.5)
== END 2024-09-24 07:21 | disposition home or self-care (01) ==
LOC: JER 18:29 → JERFT 18:29 → JLDR 22:35
PROVIDERS: ADMIT Obstetrics & Gynecology; ATTEND Obstetrics & Gynecology
CPT/HCPCS: 36415; 76819-TC; 82962; 85025; 85027; 85379; 85384; 85610; 85730; 86850; 86900; 86901; 96372; 99285-25; G0378

== ENCOUNTER 2024-10-23 06:25 | Inpatient (IN) | payer OTHER ==
[2024-10-23] MEDS: ELECTROLYTE-148 SOLN 1,000 ML IV ONE (06:45)
[2024-10-23 07:03] VITALS: BMI 29.2
[2024-10-23] MEDS: ELECTROLYTE-148 SOLN 1,000 ML IV SCH (07:54)
[2024-10-23] MEDS: CITRIC ACID/SODIUM CITRATE 30 ML UNIT-DOSE CUP PO ONE (07:54)
[2024-10-23] MEDS ORDERED: FENTANYL CITRATE/PF 50 MCG/ML VIAL ONE (07:58)
[2024-10-23] MEDS ORDERED: morphine SULFATE (PF) 1 MG/2 ML SYRINGE ONE (07:58)
[2024-10-23] MEDS ORDERED: ceFAZolin SODIUM 1 GM VIAL ONE (08:15)
[2024-10-23] MEDS ORDERED: METHYLERGONOVINE MALEATE 0.2 MG/1 ML AMP IM PRN (09:04)
[2024-10-23 09:49] LABS: CORD HCO3 27.4 mmHg (20-29); CORD PCO2 65.6 mmHg (30-78); CORD pH 7.239 (7.14-7.44)
[2024-10-23 09:51] LABS: CORD BASE EXCESS -3.4 mmol/L (0-2); CORD HCO3 22.6 mmHg (20-29); CORD pH 7.329 (7.14-7.44)
[2024-10-23 10:21] LABS: HIV INTERPRETATION NEGATIVE (NEGATIVE)
[2024-10-23] MEDS: CEFAZOLIN SODIUM 2 GM in DEXTROSE 5%-WATER 100 ML IVPB SCH (11:59)
[2024-10-23] MEDS: OXYTOCIN 20 UNITS in 0.9% NS 20 UNIT/1,000 ML INFUS.BAG IV SCH (12:10)
[2024-10-23] MEDS: IBUPROFEN 600 MG TABLET (FP) PO PRN (12:11)
[2024-10-23] MEDS ORDERED: oxyCODONE HCL 5 MG TABLET PO PRN ×2 (21:04)
[2024-10-24] MEDS: ACETAMINOPHEN 1000 MG/100 ML BAG IVPB PRN (01:29)
[2024-10-24] MEDS: SIMETHICONE 80 MG TAB.CHEW (FP) PO PRN (07:27)
[2024-10-24 08:42] LABS: BASO % 0.2 % (0-2.0); EOS % 0.5 % (0-4.5); HEMATOCRIT 31.3 % (32.4-45.2); HEMOGLOBIN 10.8 GM/dL (10.7-15.3); LYMPH % 10.7 % (8-40); MCH 30.5 pg (25.7-33.7); MCHC 34.6 g/dl (32.0-36.0); MEAN CELL VOLUME 88.2 fl (80-96); MEAN PLT VOLUME 8.7 fl (7.5-11.1); MONO % 5.1 % (3.8-10.2); NEUT % 83.5 % (42.8-82.8); PLATELET COUNT 158 10^3/uL (134-434); RBC 3.55 M/mm3 (3.60-5.2); RDW 14.9 % (11.6-15.6); WHITE BLOOD COUNT 10.2 K/mm3 (4.0-10.0)
[2024-10-24] MEDS ORDERED: BISACODYL 10 MG SUPP.RECT RC PRN (09:04)
[2024-10-24] MEDS: ENOXAPARIN NA (PORCINE) 40 MG/0.4 ML DISP.SYRIN SQ SCH (09:55)
[2024-10-25] MEDS: ACETAMINOPHEN 325 MG TABLET (FP) PO PRN (19:42)
[2024-10-25 22:22] VITALS: RESP 18
[2024-10-26 08:15] LABS: BASO % 0.4 % (0-2.0); EOS % 1.1 % (0-4.5); HEMATOCRIT 29.5 % (32.4-45.2); HEMOGLOBIN 10.1 GM/dL (10.7-15.3); LYMPH % 16.7 % (8-40); MCH 30.5 pg (25.7-33.7); MCHC 34.4 g/dl (32.0-36.0); MEAN CELL VOLUME 88.7 fl (80-96); MEAN PLT VOLUME 8.7 fl (7.5-11.1); MONO % 5.3 % (3.8-10.2); NEUT % 76.5 % (42.8-82.8); PLATELET COUNT 183 10^3/uL (134-434); RBC 3.32 M/mm3 (3.60-5.2); RDW 14.9 % (11.6-15.6); WHITE BLOOD COUNT 7.9 K/mm3 (4.0-10.0)
[2024-10-26 10:11] VITALS: BP 95/60; PULSE 65; TEMP 98
== END 2024-10-26 12:50 | disposition home or self-care (01) | DRG 540 ==
LOC: JLDR 06:25 → J3W 11:20
PROVIDERS: ADMIT Obstetrics & Gynecology; ATTEND Obstetrics & Gynecology
PROC: 10D00Z1 Extraction of Products of Conception, Low, Open Approach (ICD-10-PCS; principal; 2024-10-23)
DX: O34.211 Maternal care for low transverse scar from previous cesarean delivery (principal); N85.8 Other specified noninflammatory disorders of uterus; O24.420 Gestational diabetes mellitus in childbirth, diet controlled; Z3A.39 39 weeks gestation of pregnancy; Z37.0 Single live birth
CPT/HCPCS: 36415; 36600; 59409; 80048; 82803; 85025; 85610; 85730; 86780; 86850; 86900; 86901; 87389; 88307-TC; J0131